=== PATIENT | female | born 1950 | race Two or more races ===

== ENCOUNTER → 2023-12-05 09:09 | Outpatient (CLI) | payer OTHER | END | disposition home or self-care (01) | LOC: EKG 09:09 | PROVIDERS: ATTEND Urology | DX: I11.9 Hypertensive heart disease without heart failure (principal) ==

== ENCOUNTER 2024-10-15 11:26 | Emergency (ER) | payer OTHER ==
[~2024-10-15] VITALS: Ht 157.5 cm; Wt 49.9 kg
[2024-10-15] MEDS ORDERED: FARXIGA10 MG PO (12:09)
[2024-10-15] MEDS ORDERED: ROSUVASTATIN CA10 MG PO (12:09)
[2024-10-15] MEDS ORDERED: IRBESARTAN150 MG PO (12:09)
[2024-10-15] MEDS ORDERED: ONDANSETRON HCL 2 MG/ML VIAL IV STA (12:10)
[2024-10-15] MEDS ORDERED: MECLIZINE HCL 25 MG TABLET PO ONE (12:15)
[2024-10-15] MEDS ORDERED: 0.9 % SODIUM CHLORIDE 1,000 ML IV SCH (12:15)
[2024-10-15 13:16] LABS: HEMATOCRIT 34.7 % (36.0-45.00); HEMOGLOBIN 11.4 g/dL (12.0-15.00); MEAN CELL VOLUME 88.9 fL (80.00-100.00); MEAN CORPUSCULAR HEMOGLOBIN 29.1 pg (27.00-32.0); MEAN CORPUSCULAR HGB CONC 32.7 g/dl (32.0-36.0); PLATELET COUNT 194 K/uL (150-450)
[2024-10-15 13:32] LABS: CALCIUM 8.9 mg/dL (8.5-10.1); CREATININE SERUM 1.87 mg/dL (0.55-1.02); GFR 26.39
[2024-10-15 13:39] LABS: POTASSIUM 5.41 mEq/L (3.5-5.1)
[2024-10-15] MEDS ORDERED: DRAMAMINE LESS25 MG PO (15:49)
== END 2024-10-15 15:51 | disposition home or self-care (01) ==
LOC: ER 11:26
PROVIDERS: Emergency Medicine
DX: R42 Dizziness and giddiness (principal); R11.10 Vomiting, unspecified; I10 Essential (primary) hypertension; E11.9 Type 2 diabetes mellitus without complications
CPT/HCPCS: 36415; 70450; 96365; 96366; 99284; J2405; J7030